=== PATIENT | female | born 1985 | race Caucasian/White ===

== ENCOUNTER 2021-07-17 08:15 | Outpatient (CLI) | payer BC, SELFPAY ==
[2021-07-17 09:16] LABS: Alanine Aminotransferase 29 U/L (14-59); Alkaline Phosphatase 99 U/L (46-116); Anion Gap 12 mmol/L (8-16); Aspartate Amino Transferase 13 U/L (15-37); Bilirubin,Total 0.4 mg/dL (0.00-1.00); Blood Urea Nitrogen 14 mg/dL (7-18); Calcium 9.4 mg/dL (8.5-10.1); Carbon Dioxide 23 mmol/L (21-32); Chloride 102 mmol/L (98-108); Cholesterol 182 mg/dL (0-200); Estimated Glomerular Filt Rate > 60; Glucose 93 mg/dL (70-99); HDL Direct 58 mg/dL (40-60); LDL Cholesterol Calculated 112 mg/dL (<130); Osmolality Calculated 284 mOsm/kg (285-295); Potassium 4.5 mmol/L (3.5-5.1); Sodium 137 mmol/L (136-145); Total Protein 7.6 g/dL (6.4-8.2); Triglycerides 60 mg/dL (0-150)
== END 2021-07-17 08:16 | disposition home or self-care (01) ==
LOC: CHSLAB 08:18
PROVIDERS: PCP Nurse Practitioner Family; Visit Provider Nurse Practitioner Family
DX: Z00.00 Encounter for general adult medical examination without abnormal findings (principal)
CPT/HCPCS: 36415; 80053; 80061

== ENCOUNTER 2023-12-28 14:42 | Outpatient (CLI) | payer BC, SELFPAY ==
--- NOTE | ~2023-12-28 | MM_ITS ---
EXAMINATION: MM screening [facility] BI w kaitlynn HISTORY: Screening TECHNIQUE: Craniocaudal and mediolateral oblique 3-D tomosynthesis images were obtained and synthetic 2-D images were generated. CAD analysis was submitted and interpreted. COMPARISON: No prior mammogram is available for comparison at this institution. BREAST PARENCHYMAL COMPOSITION: There are scattered areas of fibroglandular density. FINDINGS: There is no evidence of suspicious mass, calcification, or architectural distortion to sugg est malignancy in either breast. There has been no suspicious interval change. IMPRESSION: 1. No mammographic evidence of malignancy. 2. Recommend routine screening mammography in one year. BI-RADS Category 1: Negative Reviewed, dictated and finalized at location B.
[2023-12-28 15:09] LABS: Basophils Absolute Auto 0.07 K/mm3 (0.00-0.10); Basophils Percent Auto 0.7 % (0.0-1.0); Eosinophils Absolute Auto 0.15 K/mm3 (0.02-0.50); Eosinophils Percent Auto 1.4 % (1.0-6.0); Hemoglobin 12.7 g/dL (12.0-15.0); Immature Granulocyte Absolute 0.03 K/mm3 (0.00-0.00); Immature Granulocyte Percent A 0.3 % (0.0-0.0); Lymphocytes Absolute Auto 2.81 K/mm3 (1.10-4.50); Lymphocytes Percent Auto 26.1 % (18.0-42.0); Mean Corpuscular HGB Conc 32.6 g/dL (32-36); Mean Corpuscular Hemoglobin 27.9 pg (27.0-31.0); Mean Corpuscular Volume 85.7 fL (78.0-102.0); Mean Platelet Volume 10.1 fl (9.2-11.8); Monocytes Absolute Auto 0.57 K/mm3 (0.10-0.90); Monocytes Percent Auto 5.3 % (2.0-11.0); Neutrophils Absolute Auto 7.13 K/mm3 (1.70-7.20); Neutrophils Percent Auto 66.2 % (50.0-70.0); Platelet Count Result 306 K/mm3 (150-420); Red Blood Count 4.55 M/mm3 (4.20-5.40); Red Cell Distribution Width 13.8 % (11.6-14.4); White Blood Count 10.8 K/mm3 (4.8-10.8)
[2023-12-28 15:40] LABS: Cholesterol 213 mg/dL (0-200); HDL Direct 48 mg/dL (40-60); LDL Cholesterol Calculated 126 mg/dL (<130); Triglycerides 196 mg/dL (0-150)
== END 2023-12-28 14:43 | disposition home or self-care (01) ==
PROVIDERS: PCP Nurse Practitioner Family; Visit Provider Nurse Practitioner Family
DX: Z00.00 Encounter for general adult medical examination without abnormal findings (principal); Z13.6 Encounter for screening for cardiovascular disorders; Z12.31 Encounter for screening mammogram for malignant neoplasm of breast
CPT/HCPCS: 36415; 77063; 77067; 80061; 85025

== ENCOUNTER 2024-08-21 18:23 | Emergency (ER) | payer BC, SELFPAY ==
--- NOTE | ~2024-08-21 | XR_ITS ---
HISTORY: cough, right rib pain lower posterior COMPARISON: None TECHNIQUE: 3 views of the bilateral ribs were performed along with a PA and lateral view of the chest . FINDINGS: No acute displaced fracture is appreciated. Bone mineralization is age-appropriate. The cardiomediastinal silhouette is unremarkable. The lungs are clear. IMPRESSION: No acute displaced rib fracture is appreciated. The lungs are clear. Reviewed, dictated and finalized at location A.
[2024-08-21 18:31] VITALS: BP 173/90; PULSE 121; RESP 18; TEMP 37.2; O2SAT 100
--- OUTSIDE RECORDS SUMMARY | 2024-08-21 18:31 | XMS_ITS | Clinical Summary ---
Author Organization [facility] Address [address] [place] [address] Care Team Providers Care Racecar Driver Name Role Phone Nadeem Gray MD Primary Care Provider [phone] Medications albuterol sulfate HFA 108 (90 Base) MCG/ACT inhaler 08/16/19 25 Active azithromycin (ZITHROMAX) 250 MG tablet 08/17/19 25 Active predniSONE (DELTASONE) 20 MG tablet 08/17/19 25 Active phentermine (ADIPEX-P) 37.5 MG tabletIndicati ons:Class 3 severe obesity due to excess calories with serious comorbidity and body mass index (BMI) of 50.0 to 59.9 in adult Take 1 tablet (37.5 mg total) by mouth every morning before breakfast for 30 days. 30 tablet 08/18/19 25 025 Active venlafaxine XR (EFFEXOR-XR) 150 MG 24 hr capsuleIndicat ions:Mild episode of recurrent major depressive disorder,YAMILET (generalized anxiety disorder) Take 1 capsule (150 mg total) by mouth daily. 90 capsule 1 08/18/19 25 Active ferrous sulfate, 65 mg elemental, 325 (65 FE) MG tabletIndicati ons:Iron deficiency anemia, unspecified iron deficiency anemia type Take 1 tablet (325 mg total) by mouth daily with breakfast. 90 tablet 1 08/19/19 25 Active omeprazole (PRILOSEC) 40 MG capsuleIndicat ions:Gastroeso phageal reflux disease without esophagitis TAKE 1 CAPSULE (40 MG TOTAL) BY MOUTH DAILY. 90 capsule 08/22/19 25 Active venlafaxine XR (EFFEXOR-XR) 150 MG 24 hr capsule Take 1 capsule (150 mg total) by mouth daily. 02/12/20 25 025 Discontinued(Re order) topiramate (TOPAMAX) 25 MG tablet PLEASE SEE ATTACHED FOR DETAILED DIRECTIONS 11/02/19 24 025 Discontinued omeprazole (PRILOSEC) 20 MG capsule Take 1 capsule (20 mg total) by mouth daily. 025 Discontinued(Re order) omeprazole (PRILOSEC) 40 MG capsuleIndicat ions:Gastroeso phageal reflux disease without esophagitis Take 1 capsule (40 mg total) by mouth daily. 90 capsule 1 08/18/19 25 025 Discontinued Encounters Date Type Department Care Team Description 08/18/2024 Results Follow-Up [address] [address] Nadeem Gray MD CBC W/DIFF AUTOMATED, COMPREHENSIVE METABOLIC PANEL, TSH W/REFLEX, HEMOGLOBIN, GLYCOSYLATED 08/17/2024 1:00 PM CDT Office Visit [place] [address] [place] [address] Nadeem Gray MD Follow Up (New pt. Would like to discuss. Meds, Cpap and weightless, back pain, Hormonal acne. Pt's OB Bora Arzola. ); Anxiety; Obstructive Sleep Apnea ; Depression; Physical; Sleep Problem; GERD; Weight Problem 08/17/2024 - 08/17/2024 11:59 PM CDT Hospital Encounter [facility] [place] [address] Nadeem Gray MD Discharge Disposition: Home or Self Care (Routine Discharge) 08/17/2024 Travel from Last 3 Months Immunizations Immunization Administration Dates Next Due Tdap (Generic) 11/15/2014 Family History Medical History Relation Comments Diabetes Father Prostate Cancer Father Epilepsy Mother Relation Status Comments Father Mother Social History Tobacco Use Types Packs/Day Years Used Date Smoking Tobacco: Some Days Cigarettes 0.1 22 Started: 08/17/2002 Passive Smoke Exposure: Current Smokeless Tobacco: Never Tobacco Cessation:Ready to Q uit: Yes; Counseling Given: Yes Comments:Pt states she only smokes socially Alcohol Use Standard Drinks/Week Comments Yes 1.7 (1 standard drink = 0.6 oz p ure alcohol) socially B1300 Health Literacy Answer Date Recor ded How often do you need to hav e someone help you when you read instructions, pamphlets, or other written material from your doctor or pharmacy? Never 08/17/2024 [facility] Utilities Answer Date Recorded In the past 12 months has e [employer], gas, oil, or water company threatened to shut off services in your home? No 08/17/2024 Humiliation, Afraid, Rape, and Kick questionnair e Answer Date Recorded Within the last year, have y ou been afraid of your partner or ex-partner? No 08/17/2024 Within the last year, have y ou been humiliated or emotionally abused in other ways by your partner or ex-partner? No Within the last year, have y ou been kicked, hit, slapped, or otherwise physically hurt by your partner or ex-partner? No 08/17/2024 Within the last year, have y ou been raped or forced to have any kind of sexual activity by your partner or ex-partner? No 08/17/2024 Social Connection and Isolat ion Panel [NHANES] Answer Date Recorded In a typical week, how many times do you talk on the phone with family, friends, or neighbors? More than three times a week 08/17/2024 How often do you get togethe r with friends or relatives? More than three times a week 08/17/2024 How often do you attend chur or baptism services? More than 4 times per year 08/17/2024 Do you belong to any clubs o r organizations such as latter day groups, unions, fraternal or athletic groups, or school groups? Yes 08/17/2024 How often do you attend meet ings of the clubs or organizations you belong to? 1 to 4 times per year 08/17/2024 Are you , , di vorced, , never , or living with a partner? 08/17/2024 AUDIT-C Answer Date Recorded Q1: How often do you have a drink containing alc ohol? Monthly or less 08/17/2024 Q2: How many drinks containi ng alcohol do you have on a typical day when you are drinking? 3 or 4 08/17/2024 Q3: How often do you have si x or more drinks on one occasion? Never 08/17/2024 Overall Financial Resource Strain (CARDIA) Answe r Date Recorded How hard is it for you to pa y for the very basics like food, housing, medical care, and heating? Not very hard 08/17/2024 PHQ-2 Answer Date Recorded Patient Health Questionnaire-2 Score 0 08/17/2024 [facility] - Occupational Stress Questionnaire Answer Date Recorded Do you feel stress - tense, restless, nervous, or anxious, or unable to sleep at night because your mind is troubled all the time - these days? Only a little 08/17/2024 Exercise Vital Sign Answer Date Recorde d On average, how many days pe r week do you engage in moderate to strenuous exercise (like a brisk walk)? 1 day 08/17/2024 On average, how many minutes do you engage in exercise at this level? 20 min 08/17/2024 Hunger Vital Sign Answer Date Recorded Within the past 12 months, y ou worried that your food would run out before you got the money to buy more. Never true 08/18/19 25 Within the past 12 months, t he food you bought just didn't last and you didn't have money to get more. Never true 08/17/2024 PRAPARE - Transportation Answer Date Re corded In the past 12 months, has l ack of transportation kept you from medical appointments or from getting medications? No 07/31 In the past 12 months, has l ack of transportation kept you from meetings, work, or from getting things needed for daily living? No 08/17/2024 Housing Stability Vital Sign Answer Marc e Recorded In the last 12 months, was t here a time when you were not able to pay the mortgage or rent on time? No 08/17/2024 Number of Times Moved in the Last Year Not on fi le 08/17/2024 At any time in the past [address] [facility], were you homeless or living in a senior care (including now)? 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 Gender Identity Female 08/17/2024 12:50 PM CDT Sexual Orientation Straight 08/17/2024 12 :50 PM CDT Last Filed Vital Signs Vital Sign Reading Time Taken Comments Blood Pressure 121/78 08/17/2024 1:17 PM CDT Pulse 68 08/17/2024 1:03 PM CDT Temperature 37 C (98.6 F) 08/17/2024 1:03 PM CDT Respiratory Rate 16 08/17/2024 1:03 PM CDT Oxygen Saturation 98% 08/17/2024 1:03 PM CDT Inhaled Oxygen Concentration - - Weight 152.1 kg (335 lb 6.4 oz) 08/17/2024 1:03 PM CDT Height 162.6 cm (5' 4 ) 08/17/2024 1:03 PM CDT Body Mass Index 57.57 08/17/2024 1:03 PM CDT Plan of Treatment Upcoming Encounters Date Type Department Care Team (Late st Contact Info) Description 08/23/2024 7:30 AM CDT [facility] [address] [address] Nadeem Gray MD [address] [place] [address] 09/19/2024 11:40 AM CDT [facility] - [address] [address] Nadeem Gray MD [address] [place] [address] Health Maintenance Due Date Last Done Comments Cervical Cancer Screening Pa p Smear (Age 30 to 64) Every 3 Years 1983 Hepatitis B Vaccines (1 of 3 - 19+ 3-dose series) 2002 Pneumococcal Vaccine: Pediatrics (0 to 5 Years) and At-Risk Patients (6 to 49 Years) (1 of 2 - PCV) 2002 Cervical Cancer Screening Pa p with HPV Testing (Age 30 to 64) Every 5 Years 2013 Cervical Cancer Screening wi th HPV 2013 Mammogram Screening 2023 COVID-19 Vaccine (4 - 2023-2 5 season) 2024 03/16/2021, 08/15/2020, 07/18/2020 DTaP, Tdap and Td Vaccines ( 2 - Td or Tdap) 11/15/2024 11/15/2014 Annual Physical 08/17/2025 08/17/2024 Hepatitis C Completed 08/17/2024 PHQ-2 (Physician [place]) Completed 08/17/2024 HPV Vaccines Aged Out No longer eligi ble based on patient's age to complete this topic Meningococcal B Vaccine Aged Out No l onger eligible based on patient's age to complete this topic Meningococcal Vaccine Aged Out No radhika isabel eligible based on patient's age to complete this topic RSV Immunizations Under 20 Months Aged Out No longer eligible b ased on patient's age to complete this topic Procedures Procedure Name Priority Date/Time Associated Diagnosis Comments THYROXINE, FREE (FT4) Routine 08/17/2024 1:56 PM CDT HEMOGLOBIN, GLYCOSYLATED Routine 08/17/2024 1:56 PM CDT Annual physical exam Establishing care with new doctor, encounter for General medical exam Drug therapy TSH W/REFLEX Routine 08/17/2024 1:56 PM CDT Annual physical exam Establishing care with new doctor, encounter for General medical exam Drug therapy COMPREHENSIVE METABOLIC PANEL Routine 08/17/2024 1:56 PM CDT Annual physical exam Establishing care with new doctor, encounter for General medical exam Drug therapy CBC W/DIFF AUTOMATED Routine 08/17/2024 1:56 PM CDT Annual physical exam Establishing care with new doctor, encounter for General medical exam Drug therapy HEPATITIS C ANTIBODY Routine 08/17/2024 1:56 PM CDT Annual physical exam Establishing care with new doctor, encounter for General medical exam Drug therapy COLLECTION VENOUS BLOOD VENIPUNCTURE Routine 08/17/2024 1:44 PM CDT Annual physical exam Establishing care with new doctor, encounter for General medical exam Drug therapy from Last 3 Months Results * (ABNORMAL) TSH W/REFLEX (08/17/2024 1:56 PM CDT) Pathologist [facility] TSH 0.221(L) 0.358 - 3.740 uIU/ML 08/17/2024 8:04 PM CDT [facility] 08/17/2024 1:56 PM CDT Nadeem Gray MD LABORATORY Final Result Performing Organization Address City/[facility]/ZIP Co de Phone Number [address] [address], [place] [phone] * (ABNORMAL) HEMOGLOBIN, GLYCOSYLATED (08/17/2024 1:56 PM CDT) [facility] HGB A1C 5.5 4.5 - 6.2 % 08/17/2024 7:47 PM CDT [facility] ESTIMATED AVG GLUCOSE 111(H) 74 - 106 MG/DL 08/17/2024 7:47 PM CDT [facility] 08/17/2024 1:56 PM CDT Nadeem Gray MD LABORATORY Final Result Performing Organization Address City/[facility]/ZIP Co de Phone Number [address] [address], [place] [phone] * (ABNORMAL) COMPREHENSIVE METABOLIC PANEL (08/17/2024 1:56 PM CDT) Pathologist [facility] SODIUM S/P/B 137 136 - 145 MMOL/L 08/17/2024 8:04 PM CDT [facility] POTASSIUM S/P/B 4.5 3.5 - 5.1 MMOL/L 08/17/2024 8:04 PM CDT [facility] CHLORIDE S/P/B 101 98 - 107 MMOL/L 08/17/2024 8:04 PM [facility] CO2 26.5 21 - 32 MMOL/L 08/17/2024 8:04 PM [facility] GLUCOSE 130(H) 70 - 99 MG/DL 08/17/2024 8:04 PM [facility] BUN 10 7 - 18 MG/DL 08/17/2024 8:04 PM T [facility] CREATININE S/P/B 0.67 0.55 - 1.02 MG/DL 08/17/2024 8:04 PM [facility] CALCIUM S/P/B 9.6 8.4 - 10.5 MG/DL 08/17/2024 8:04 PM [facility] BILIRUBIN TOTAL S/P/B 0.3 0.2 - 1.0 MG/DL 08/17/2024 8:04 PM CDT [facility] ALKALINE PHOSPHATASE S/P/B 111(H) 37 - 98 U/L 08/17/2024 8:04 PM [facility] AST 13(L) 15 - 37 U/L 08/17/2024 8:04 [facility] ALT 28 14 - 59 U/L 08/17/2024 8:04 PM [facility] TOTAL PROTEIN S/P/B 7.9 6.4 - 8.2 G/DL 08/17/2024 8:04 PM [facility] ALBUMIN S/P/B 3.9 3.4 - 5.0 G/DL 08/17/2024 8:04 [facility] ANION GAP 9.5 5 - 15 MMOL/L 08/17/2024 8:04 PM T [facility] Comment:REFERENCE RANGE NOT ESTABLISHED OSMOLALITY (CALC) 285 MOSM/KG 025 8:04 PM CDT [facility] Comment:REFERENCE RANGE NOT ESTABLISHED GFR ESTIMATE >90 >90 ML/MIN/1. 73 M2 08/17/2024 8:04 PM CDT [facility] GFR NOTES GFR REFERENCE S: 08/17/2024 8:04 PM CDT [facility] Comment: THE ESTIMATED GFR IS CALCULATED USING THE 2020 CKD-EPI EQUATION. THE FOLLOWING CATEGORIES FOR GRADING RENAL FUNCTION ARE RECOMMENDED BY THE INTERNATIONAL SOCIETY OF NEPHROLOGY (KDIGO 2012 CLINICAL PRACTICE GUIDELINE). G1,NORMAL OR HIGH: >89 ml/min/1.73 m2 G2,MILDLY DECREASED: 60-89 ml/min/1.73 m2 G3A,MILDLY TO MODERATELY DECREASED: 45-59 ml/min/1.73 m2 G3B,MODERATELY TO SEVERELY DECREASED: 30-44 ml/min/1.73 m2 G4,SEVERELY DECREASED: 15-29 ml/min/1.73 m2 G5,KIDNEY FAILURE: <15 ml/min/1.73 m2 08/17/2024 1:56 PM CDT Nadeem Gray MD LABORATORY Final Result Performing Organization Address City/[facility]/ZIP Co de Phone Number [facility] [address] [place] [address], [place] [phone] * HEPATITIS C ANTIBODY (08/17/2024 1:56 PM CDT) HEPATITIS C AB NON-REACTI VE NON-REACT AIMRAH 08/18/2024 7:34 PM CDT [facility] Comment: ANTIBODIES TO HCV NOT DETECTED. DOES NOT EXCLUDE THE POSSIBILITY OF EXPOSURE TO HCV. 08/17/2024 1:56 PM CDT us Nadeem Gray MD LABORATORY Final Result [facility] [address] [place] [address], [place] [phone] [id number] * (ABNORMAL) CBC W/DIFF AUTOMATED (08/17/2024 1:56 PM CDT) [facility] WBC 11.64(H) 4.00 - 10.80 x10'3/uL 08/17/2024 7:33 PM CDT [facility] RBC 4.90 4.10 - 5.40 x10'6/uL 08/17/2024 7:33 PM CDT [facility] HGB 12.9 12.0 - 16.0 G/DL 08/17/2024 7:33 PM CDT [facility] HCT 40.5 36.0 - 47.0 % 08/17/2024 7:33 PM CDT [facility] MCV 82.7 78.0 - 100.0 FL 08/17/2024 7:33 PM CDT [facility] MCH 26.3(L) 27.0 - 31.0 PG 08/17/2024 7:33 PM CDT [facility] MCHC 31.9(L) 33.0 - 36.0 G/DL 08/17/2024 7:33 PM CDT [facility] RDW 14.8(H) 11.5 - 14.5 % 08/17/2024 7:33 PM CDT [facility] PLT 351(H) 150 - 350 x10'3/uL 08/17/2024 7:33 PM CDT [facility] MPV 10.9(H) 7.4 - 10.4 FL 08/17/2024 7:33 PM CDT [facility] DIFFERENTIAL TYPE AUTOMATED DIFFERENTIAL 08/17/2024 7:33 PM CDT [facility] NEUTROPHILS % 88.8 % 08/17/2024 7:33 PM CDT [facility] LYMPHOCYTES % 9.9 % 08/17/2024 7:33 PM CDT [facility] MONOCYTES % 0.8 % 08/17/2024 7:33 PM CDT [facility] EOSINOPHILS % 0.0 % 08/17/2024 7:33 PM CDT [facility] BASOPHILS % 0.3 % 08/17/2024 7:33 PM CDT [facility] IMMATURE GRANS % 0.2 % 08/17/2024 7:33 PM CDT [facility] ABS. NEUTROPHILS 10.35(H) 1.60 - 8.30 x10'3/uL 08/17/2024 7:33 PM CDT [facility] ABS. LYMPHOCYTES 1.15 0.80 - 4.70 x10'3/uL 08/17/2024 7:33 PM CDT [facility] ABS. MONOCYTES 0.09 0.00 - 1.50 x10'3/uL 08/17/2024 7:33 PM CDT [facility] ABS. EOSINOPHILS 0.00 0.00 - 0.40 x10'3/uL 08/17/2024 7:33 PM CDT -[facility] ABS. BASOPHILS 0.03 0.00 - 0.20 x10'3/uL 08/17/2024 7:33 PM CDT [facility] ABS. IMMATURE GRANULOCYTES 0.02 0.00 - 0.03 x10'3/uL 08/17/2024 7:33 PM CDT [facility] 08/17/2024 1:56 PM CDT us Nadeem Gray MD LABORATORY Final Result [facility] [address] [place] [address], * THYROXINE, FREE (FT4) (08/17/2024 1:56 PM CDT) Pathologist [facility] FREE T4 1.00 0.76 - 1.46 NG/DL 08/18/2024 10:46 AM CDT -[facility] 08/17/2024 1:56 PM CDT Nadeem Gray MD LABORATORY Final Result -[facility] [address] [facility] [place] [address], from Last 3 Months Insurance Care Teams Racecar Driver Relationship Specialty Start Date End Date Nadeem Gray MD [address] [facility] [address] [place] [id number] PCP - General INTERNAL MEDICINE 08/17/24
--- OUTSIDE RECORDS SUMMARY | 2024-08-21 18:32 | XMS_ITS | Encounter Summary ---
Author Organization [facility] Address [address] [place] [address] Care Team Providers Care Forgeman Helper Name Role Phone Nadeem Gray MD Primary Care Provider [phone] Encounter Details Date Type Department Care Team (Latest Contact Info) Description 08/18/2024 Results Follow-Up [facility] - [place] [address] [address] [place] [address] Nadeem Gray MD [address] [place] [address] [address] [place] [address] CBC W/DIFF AUTOMATED, COMPREHENSIVE METABOLIC PANEL, TSH W/REFLEX, HEMOGLOBIN, GLYCOSYLATED Social History Tobacco Use Types Packs/Day Years Used Date Smoking Tobacco: Some Days Cigarettes 0.1 22 Started: 08/17/2002 Passive Smoke Exposure: Current Smokeless Tobacco: Never Comments:Pt states she only smokes socially Alcohol Use Standard Drinks/Week Comments Yes 1.7 (1 standard drink = 0.6 oz p ure alcohol) socially B1300 Health Literacy Answer Date Recor ded How often do you need to hav e someone help you when you read instructions, pamphlets, or other written material from your doctor or pharmacy? Never 08/17/2024 [facility] Utilities Answer Date Recorded In the past 12 months has th e [employer], gas, oil, or water company threatened to [...] How often do you attend chur or gnosticist services? More than 4 times per year 08/17/2024 Do you belong to any clubs o r organizations such as anabaptism groups, unions, fraternal or athletic groups, or [...] Recorded Patient Health Questionnaire-2 Score 0 08/17/2024 [facility] [place] [facility] - Occupational Stress [...] any time in the past 12 m [facility], were you homeless or living in a fdc (including now)? 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 Gender Identity Female 08/17/2024 12:50 PM CDT Sexual Orientation Straight 08/17/2024 12 :50 PM CDT documented as of this encounter Plan of Treatment Upcoming Encounters Date Type Department Care Team (Late st Contact Info) Description 08/23/2024 7:30 AM CDT Laboratory Only [facility] [place] [address] [address] [place] [address] Nadeem Gray MD [address] [place] [address] [address] [place] [address] 09/19/2024 11:40 AM CDT Office Visit [facility] - [place] [address] [address] [place] [address] Nadeem Gray MD Count includes the [facility] [address] Scheduled Orders Name Type Priority Associated Diagnoses Orde r Schedule IRON SAT PANEL (IRON,IBC,%SAT) Lab Routine Iron deficiency anemia, unspecified iron deficiency anemia type Expected: 08/18/2024, Expires: 08/18/2025 [facility] Lab Routine Iron deficiency anemia, unspecified iron deficiency anemia type Expected: 08/18/2024, Expires: 08/18/2025 documented as of this encounter Visit Diagnoses Diagnosis Iron deficiency anemia, unspecified iron deficiency anemia type- Primary documented in this encounter Additional Health Concerns Assessment Noted Time PHQ-9 Depression Total Score: 1 08/18/19 25 1:23 PM CDT documented as of this encounter Care Teams Forgeman Helper Relationship Specialty Start Date End Date Nadeem Gray MD [address] [place] [address] PCP - General INTERNAL MEDICINE 08/17/24 documented as of this encounter
--- NOTE | 2024-08-21 18:43 | ECG_ITS ---
Test Date: 2024-08-21 19:28:44 Measurements Intervals [place] Rate: 96 P: 36 UT: 139 QRS: 13 QRSD: 101 T: 28 QT: 342 QTc: 433 Interpretive Statements SINUS RHYTHM MINIMAL Q WAVES- INF/HIGH LAT LEADS BASELINE ARTIFACT- III BORDERLINE ECG No previous ECG available for comparison Electronically Signed On 08-21-2024 19:54:45 CDT by Rolly Hammond D.O.
--- NOTE | 2024-08-21 18:44 | ED.GENADULT ---
HPI - General Adult General Chief complaint: Upper Respiratory Infection Stated complaint: cough Time Seen by Provider: 08/21/24 18:25 History of Present Illness HPI narrative: Ting is a 39F with a PMH of LUIS, GERD, that presented to the ED with a cough and near syncope. She has had a cough for 4. It persists despite steroids, inhaler and a round of abx. She has less congestion and sputum now but coughs so hard she has developed sevre rib pain and has nearly passed out from the cough. No exertional CP, vomiting, fevers, night sweats but she is having some heartburn. Related Data Home Medications ?Medication ?Instructions ?Recorded ?Confirmed ?Last Taken ?Type aspirin 81 mg tablet,delayed 81 mg PO DAILY 12/07/23 08/09/24 Unknown History release cholecalciferol (vitamin D3) 25 25 mcg PO DAILY 12/07/23 08/09/24 Unknown History mcg (1,000 unit) capsule mecobalamin (vitamin B12) 1,000 1,000 mcg PO DAILY 12/07/23 08/09/24 Unknown History mcg chewable tablet xyjumqzdbgys-Ex-wyro-minerals tablet PO 12/07/23 08/09/24 Unknown History omega-3 360 yb-vrw-mod-fish oil 1 cap PO DAILY 12/07/23 08/09/24 Unknown History 1,200 mg capsule,delayed release (Fish Oil) Allergies Allergy/AdvReac Type Severity Reaction Status Date / Time No Known Allergies Allergy Verified 08/21/24 18:29 COUNT INCLUDES THE [facility] Surgical History Surgical History History of hysterectomy Family History Family History Father Diabetes mellitus Hypertension Cerebrovascular accident Mother No problems noted. Social History Social History Smoking status: Former smoker Tobacco type: cigarettes Smoking end date: 06/30/21 Substance use: never Substance use type: does not use Living arrangements: with family Occupation/Education: occupation Additional occupation/education comments: [employer] Course Course Emergency Course: EKG showed sinus tachycardia with a rate of 96, normal axis, no ST elevation/depression HISTORY: cough, right rib pain lower posterior COMPARISON: None TECHNIQUE: 3 views of the bilateral ribs were performed along with a PA and lateral view of the chest. FINDINGS: No acute displaced fracture is appreciated. Bone mineralization is age-appropriate. The cardiomediastinal silhouette is unremarkable. The lungs are clear. IMPRESSION: No acute displaced rib fracture is appreciated. The lungs are clear. Labs showed leukocytosis, likely reactive from her recent steroid use. Given normal workup I suspect cough could be from GERD vs vocal cord dysfunction vs other as her lungs/CXR are clear. I suspect her near syncope is vasovagal in origin as it only happens when coughs really hard. Vital Signs Vital signs: Vital Signs Oxygen Delivery Room Air 08/21/24 18:23 Temperature 99.0 F 08/21/24 18:31 Pulse Rate 121 H 08/21/24 18:31 Respiratory Rate 18 08/21/24 18:31 Blood Pressure 173/90 H 08/21/24 18:31 Pulse Oximetry 100 08/21/24 18:31 Oxygen Delivery Room Air 08/21/24 18:31 Medical Decision Making Vital Signs Vital Signs: Vital Signs Oxygen Delivery Room Air 08/21/24 18:23 Temperature 99.0 F 08/21/24 18:31 Pulse Rate 121 H 08/21/24 18:31 Respiratory Rate 18 08/21/24 18:31 Blood Pressure 173/90 H 08/21/24 18:31 Pulse Oximetry 100 08/21/24 18:31 Oxygen Delivery Room Air 08/21/24 18:31 Lab Data 08/21/24 19:03 08/21/24 19:03 Labs: Lab Results 08/21/24 Range/Units 19:03 WBC 16.5 H (4.8-10.8) K/mm3 RBC 5.01 (4.20-5.40) M/mm3 Hgb 13.3 (12.0-15.0) g/dL Hct 41.4 (35.0-49.0) % MCV 82.6 (78.0-102.0) fL MCH 26.5 L (27.0-31.0) pg MCHC 32.1 (32-36) g/dL RDW 14.8 H (11.6-14.4) % Plt Count 385 (150-420) K/mm3 MPV 10.3 (9.2-11.8) fl Immature Gran % (Auto) 0.5 H (0.0-0.0) % Neut % (Auto) 76.4 H (50.0-70.0) % Lymph % (Auto) 19.2 (18.0-42.0) % Vermilion % (Auto) 3.5 (2.0-11.0) % Eos % (Auto) 0.1 L (1.0-6.0) % Baso % (Auto) 0.3 (0.0-1.0) % Lymph # (Auto) 3.17 (1.10-4.50) K/mm3 Vermilion # (Auto) 0.57 (0.10-0.90) K/mm3 Eos # (Auto) 0.01 L (0.02-0.50) K/mm3 Baso # (Auto) 0.05 (0.00-0.10) K/mm3 Abs Immat Gran (auto) 0.08 H (0.00-0.00) K/mm3 Absolute Neuts (auto) 12.64 H (1.70-7.20) K/mm3 Absolute Nucleated RBC 0.00 (0.00-0.00) K/mm3 Nucleated RBC % 0.0 (0-0.0) % Sodium 135 L (136-145) mmol/L Potassium 4.2 (3.5-5.1) mmol/L Chloride 96 L (98-108) mmol/L Carbon Dioxide 28 (21-32) mmol/L Anion Gap 11 (4-12) mmol/L BUN 21 H (7-18) mg/dL Creatinine 1.04 H (0.55-1.02) mg/dL Estim Creat Clear Calc 97 ml/min Estimated GFR 58 L (59 - ) Glucose 120 H (70-99) mg/dL Calculated Osmolality 284 L (285-295) mOsm/kg Calcium 9.7 (8.5-10.1) mg/dL Total Bilirubin 0.4 (0.00-1.00) mg/dL AST 10 L (15-37) U/L ALT 24 (14-59) U/L Alkaline Phosphatase 112 (46-116) U/L Troponin I < 4.0 (0.00-60.4) ng/L Total Protein 8.5 H (6.4-8.2) g/dL Albumin 3.9 (3.4-5.0) g/dL Discharge Plan Discharge Clinical Impression: Chronic cough, Chronic GERD, Near syncope Patient Disposition: Home Condition: Stable Instructions: Antibiotic Form Patient Language: Maltese Prescriptions: New famotidine 40 mg tablet 40 mg PO DAILY Qty: 30 0RF No Action aspirin 81 mg tablet,delayed release (DR/EC) 81 mg PO DAILY prjancxfdtkq-Js-bzvq-minerals Tablet PO mecobalamin (vitamin B12) 1,000 mcg tablet,chewable 1,000 mcg PO DAILY cholecalciferol (vitamin D3) 25 mcg (1,000 unit) capsule 25 mcg PO DAILY omega 3-ufg-hoj-fish oil [Fish Oil] 360-1,200 mg capsule,delayed release(DR/EC) 1 cap PO DAILY venlafaxine 150 mg capsule,extended release 24hr 150 mg PO DAILY Qty: 90 3RF Zepbound 2.5 mg/0.5 mL pen injector 2.5 mg subcut WEEKLY Qty: 2 0RF Rx Instructions: for 4 weeks omeprazole 20 mg capsule,delayed release(DR/EC) See Rx Instructions .ROUTE .COMPLEX Qty: 90 0RF Dose Instruction: TAKE ONE CAPSULE BY MOUTH DAILY Rx Instructions: TAKE ONE CAPSULE BY MOUTH DAILY prednisone 20 mg tablet 40 mg PO DAILY Qty: 10 0RF azithromycin [Zithromax Z-Willam] 250 mg tablet See Rx Instructions PO .COMPLEX Qty: 6 0RF Rx Instructions: take 500 mg today (day 1), then 250 mg for 4 days (days 2-5) PO albuterol-budesonide 90-80 mcg/actuation HFA aerosol inhaler 2 inh inhalation ONCE Qty: 10.7 0RF Rx Instructions: as a single dose; may repeat up to 6 doses per day (12 inhalations) Follow-up/Referrals: Marina,MD Nadeem [Primary Care Provider] -
[2024-08-21 19:06] LABS: Basophils Absolute Auto 0.05 K/mm3 (0.00-0.10); Basophils Percent Auto 0.3 % (0.0-1.0); Eosinophils Absolute Auto 0.01 K/mm3 (0.02-0.50); Eosinophils Percent Auto 0.1 % (1.0-6.0); Hematocrit 41.4 % (35.0-49.0); Hemoglobin 13.3 g/dL (12.0-15.0); Immature Granulocyte Absolute 0.08 K/mm3 (0.00-0.00); Immature Granulocyte Percent A 0.5 % (0.0-0.0); Lymphocytes Absolute Auto 3.17 K/mm3 (1.10-4.50); Lymphocytes Percent Auto 19.2 % (18.0-42.0); Mean Corpuscular HGB Conc 32.1 g/dL (32-36); Mean Corpuscular Hemoglobin 26.5 pg (27.0-31.0); Mean Corpuscular Volume 82.6 fL (78.0-102.0); Mean Platelet Volume 10.3 fl (9.2-11.8); Monocytes Absolute Auto 0.57 K/mm3 (0.10-0.90); Monocytes Percent Auto 3.5 % (2.0-11.0); Neutrophils Absolute Auto 12.64 K/mm3 (1.70-7.20); Neutrophils Percent Auto 76.4 % (50.0-70.0); Platelet Count Result 385 K/mm3 (150-420); Red Blood Count 5.01 M/mm3 (4.20-5.40); Red Cell Distribution Width 14.8 % (11.6-14.4); White Blood Count 16.5 K/mm3 (4.8-10.8)
--- OUTSIDE RECORDS SUMMARY | 2024-08-21 19:12 | XMS_ITS | Clinical Summary ---
Author Organization [facility] Address [address] [place] [address] Care Team Providers Care Bryologist Name Role Phone Nadeem Gray MD Primary Care Provider [phone] Medications albuterol sulfate HFA 108 (90 Base) [...] Department Care Team Description 08/18/2024 Results Follow-Up [address] [address] Nadeem Gray MD CBC W/DIFF AUTOMATED, COMPREHENSIVE METABOLIC PANEL, TSH W/REFLEX, HEMOGLOBIN, GLYCOSYLATED 08/17/2024 1:00 PM CDT Office Visit [place] [address] [place] [address] Nadeem Gray MD Follow Up (New pt. Would like to discuss. Meds, Cpap and weightless, back pain, Hormonal acne. Pt's OB Bora Arzola. ); Anxiety; Obstructive Sleep Apnea ; Depression; Physical; Sleep Problem; GERD; Weight Problem 08/17/2024 - 08/17/2024 11:59 PM CDT Hospital Encounter [facility] [place] [address] Nadeem Gray MD Discharge Disposition: Home or [...] from your doctor or pharmacy? Never 08/17/2024 [facility] Utilities Answer Date Recorded In the past 12 months has e [employer], gas, oil, or water company threatened to [...] How often do you attend chur or roman catholic services? More than 4 times per year 08/17/2024 Do you belong to any clubs o r organizations such as gnosticist groups, unions, fraternal or athletic groups, or [...] Recorded Patient Health Questionnaire-2 Score 0 08/17/2024 [facility] of Occupat ional Health - Occupational Stress [...] any time in the past 12 m [facility], were you homeless or living in a long term (including now)? 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 Gender Identity Female 08/17/2024 12:50 PM CDT [...] Description 08/23/2024 7:30 AM CDT [facility] [address] [address] Nadeem Gray MD [address] [place] [address] 09/19/2024 11:40 AM CDT [facility] [address] [address] Nadeem Gray MD [address] [place] [address] Health Maintenance Due Date Last Done Comments [...] 08/17/2024 Hepatitis C Completed 08/17/2024 PHQ-2 (Physician [place]) Completed 08/17/2024 HPV Vaccines Aged Out No [...] TSH W/REFLEX (08/17/2024 1:56 PM CDT) Pathologist [facility] TSH 0.221(L) 0.358 - 3.740 uIU/ML 08/17/2024 8:04 PM CDT [facility] 08/17/2024 1:56 PM CDT Nadeem Gray MD LABORATORY Final Result Performing Organization Address City/[facility]/ZIP Co de Phone Number [address] [address], [place] [phone] * (ABNORMAL) HEMOGLOBIN, GLYCOSYLATED (08/17/2024 1:56 PM CDT) [facility] HGB A1C 5.5 4.5 - 6.2 % 08/17/2024 7:47 PM CDT [facility] ESTIMATED AVG GLUCOSE 111(H) 74 - 106 MG/DL 08/17/2024 7:47 PM CDT [facility] 08/17/2024 1:56 PM CDT Nadeem Gray MD LABORATORY Final Result Performing Organization Address City/[facility]/ZIP Co de Phone Number [address] [address], [place] [phone] * (ABNORMAL) COMPREHENSIVE METABOLIC PANEL (08/17/2024 1:56 PM CDT) Pathologist [facility] SODIUM S/P/B 137 136 - 145 MMOL/L 08/17/2024 8:04 PM CDT [facility] POTASSIUM S/P/B 4.5 3.5 - 5.1 MMOL/L 08/17/2024 8:04 PM CDT [facility] CHLORIDE S/P/B 101 98 - 107 MMOL/L 08/17/2024 8:04 PM [facility] CO2 26.5 21 - 32 MMOL/L 08/17/2024 8:04 PM [facility] GLUCOSE 130(H) 70 - 99 MG/DL 08/17/2024 8:04 PM [facility] BUN 10 7 - 18 MG/DL 08/17/2024 8:04 PM T [facility] CREATININE S/P/B 0.67 0.55 - 1.02 MG/DL 08/17/2024 8:04 PM [facility] CALCIUM S/P/B 9.6 8.4 - 10.5 MG/DL 08/17/2024 8:04 PM [facility] BILIRUBIN TOTAL S/P/B 0.3 0.2 - 1.0 MG/DL 08/17/2024 8:04 PM CDT [facility] ALKALINE PHOSPHATASE S/P/B 111(H) 37 - 98 U/L 08/17/2024 8:04 PM [facility] AST 13(L) 15 - 37 U/L 08/17/2024 8:04 [facility] ALT 28 14 - 59 U/L 08/17/2024 8:04 PM [facility] TOTAL PROTEIN S/P/B 7.9 6.4 - 8.2 G/DL 08/17/2024 8:04 PM [facility] ALBUMIN S/P/B 3.9 3.4 - 5.0 G/DL 08/17/2024 8:04 [facility] ANION GAP 9.5 5 - 15 MMOL/L 08/17/2024 8:04 PM T [facility] Comment:REFERENCE RANGE NOT ESTABLISHED OSMOLALITY (CALC) 285 MOSM/KG 025 8:04 PM CDT [facility] Comment:REFERENCE RANGE NOT ESTABLISHED GFR ESTIMATE >90 >90 ML/MIN/1. 73 M2 08/17/2024 8:04 PM CDT [facility] GFR NOTES GFR REFERENCE S: 08/17/2024 8:04 PM CDT [facility] Comment: THE ESTIMATED GFR IS CALCULATED USING [...] MD LABORATORY Final Result Performing Organization Address City/[facility]/ZIP Co de Phone Number [facility] [address] [place] [address], [place] [phone] * HEPATITIS C ANTIBODY (08/17/2024 1:56 PM CDT) HEPATITIS C AB NON-REACTI VE NON-REACT AMIRAH 08/18/2024 7:34 PM CDT [facility] Comment: ANTIBODIES TO HCV NOT DETECTED. DOES NOT EXCLUDE THE POSSIBILITY OF EXPOSURE TO HCV. 08/17/2024 1:56 PM CDT us Nadeem Gray MD LABORATORY Final Result [facility] [address] [place] [address], [place] [phone] * (ABNORMAL) CBC W/DIFF AUTOMATED (08/17/2024 1:56 PM CDT) [facility] WBC 11.64(H) 4.00 - 10.80 x10'3/uL 08/17/2024 7:33 PM CDT [facility] RBC 4.90 4.10 - 5.40 x10'6/uL 08/17/2024 7:33 PM CDT [facility] HGB 12.9 12.0 - 16.0 G/DL 08/17/2024 7:33 PM CDT [facility] HCT 40.5 36.0 - 47.0 % 08/17/2024 7:33 PM CDT [facility] MCV 82.7 78.0 - 100.0 FL 08/17/2024 7:33 PM CDT [facility] MCH 26.3(L) 27.0 - 31.0 PG 08/17/2024 7:33 PM CDT [facility] MCHC 31.9(L) 33.0 - 36.0 G/DL 08/17/2024 7:33 PM CDT [facility] RDW 14.8(H) 11.5 - 14.5 % 08/17/2024 7:33 PM CDT [facility] PLT 351(H) 150 - 350 x10'3/uL 08/17/2024 7:33 PM CDT [facility] MPV 10.9(H) 7.4 - 10.4 FL 08/17/2024 7:33 PM CDT [facility] DIFFERENTIAL TYPE AUTOMATED DIFFERENTIAL 08/17/2024 7:33 PM CDT [facility] NEUTROPHILS % 88.8 % 08/17/2024 7:33 PM CDT [facility] LYMPHOCYTES % 9.9 % 08/17/2024 7:33 PM CDT [facility] MONOCYTES % 0.8 % 08/17/2024 7:33 PM CDT [facility] EOSINOPHILS % 0.0 % 08/17/2024 7:33 PM CDT [facility] BASOPHILS % 0.3 % 08/17/2024 7:33 PM CDT [facility] IMMATURE GRANS % 0.2 % 08/17/2024 7:33 PM CDT [facility] ABS. NEUTROPHILS 10.35(H) 1.60 - 8.30 x10'3/uL 08/17/2024 7:33 PM CDT [facility] ABS. LYMPHOCYTES 1.15 0.80 - 4.70 x10'3/uL 08/17/2024 7:33 PM CDT [facility] ABS. MONOCYTES 0.09 0.00 - 1.50 x10'3/uL 08/17/2024 7:33 PM CDT [facility] ABS. EOSINOPHILS 0.00 0.00 - 0.40 x10'3/uL 08/17/2024 7:33 PM CDT [facility] ABS. BASOPHILS 0.03 0.00 - 0.20 x10'3/uL 08/17/2024 7:33 PM CDT [facility] ABS. IMMATURE GRANULOCYTES 0.02 0.00 - 0.03 x10'3/uL 08/17/2024 7:33 PM CDT [facility] 08/17/2024 1:56 PM CDT us Nadeem Gray MD LABORATORY Final Result [facility] [address] [place] [address], * THYROXINE, FREE (FT4) (08/17/2024 1:56 PM CDT) Pathologist [facility] FREE T4 1.00 0.76 - 1.46 NG/DL 08/18/2024 10:46 AM CDT [facility] 08/17/2024 1:56 PM CDT Nadeem Gray MD LABORATORY Final Result -[facility] [address] [facility] [place] [address], from Last 3 Months Insurance Care Teams Bryologist Relationship Specialty Start Date End Date Nadeem Gray MD [address] [facility] [address] [place] [address] PCP - General INTERNAL MEDICINE 08/17/24
--- OUTSIDE RECORDS SUMMARY | 2024-08-21 19:12 | XMS_ITS | Encounter Summary ---
Author Organization [facility] - [facility] Address [address] [place] [address] Care Team Providers Care Painter Bottom Name Role Phone Nadeem Gray MD Primary Care Provider [phone] Encounter Details Date Type Department Care Team (Latest Contact Info) Description 08/18/2024 Results Follow-Up [facility] Medical Group Multispecialty Care - [place] [address] [address] [place] [address] Nadeem Gray MD [address] [place] [address] [address] [place] [address] CBC W/DIFF AUTOMATED, COMPREHENSIVE METABOLIC [...] from your doctor or pharmacy? Never 08/17/2024 [facility] Utilities Answer Date Recorded In the past 12 months has th e [employer], gas, oil, or water company threatened to [...] How often do you attend chur or buddhism services? More than 4 times per year 08/17/2024 Do you belong to any clubs o r organizations such as judaism groups, unions, fraternal or athletic groups, or [...] Recorded Patient Health Questionnaire-2 Score 0 08/17/2024 [facility] of Occupat ional Health - Occupational Stress [...] any time in the past 12 m [facility], were you homeless or living in a correction (including now)? 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 Gender Identity Female 08/17/2024 12:50 PM CDT Sexual Orientation Straight 08/17/2024 12 :50 PM CDT documented as of this encounter Plan of Treatment Upcoming Encounters Date Type Department Care Team (Late st Contact Info) Description 08/23/2024 7:30 AM CDT Laboratory Only [facility] Medical [facility] Care - [place] [address] [address] [place] [address] Nadeem Gray MD [address] [place] [address] [address] [place] [address] 09/19/2024 11:40 AM CDT Office Visit [facility] Medical [facility] Care - [place] [address] [address] [place] [address] Nadeem Gray MD [facility] [address] [address] Scheduled Orders Name Type Priority Associated Diagnoses [...] documented as of this encounter Care Teams Painter Bottom Relationship Specialty Start Date End Date Nadeem Gray MD [address] [place] [id number] PCP - General INTERNAL MEDICINE 08/17/24 documented as of this encounter
[2024-08-21 19:29] LABS: Alanine Aminotransferase 24 U/L (14-59); Albumin Level 3.9 g/dL (3.4-5.0); Alkaline Phosphatase 112 U/L (46-116); Anion Gap 11 mmol/L (4-12); Aspartate Amino Transferase 10 U/L (15-37); Bilirubin,Total 0.4 mg/dL (0.00-1.00); Blood Urea Nitrogen 21 mg/dL (7-18); Calcium 9.7 mg/dL (8.5-10.1); Carbon Dioxide 28 mmol/L (21-32); Chloride 96 mmol/L (98-108); Estimated CRCL calculation 97 ml/min; Estimated Glomerular Filt Rate 58; Glucose 120 mg/dL (70-99); Osmolality Calculated 284 mOsm/kg (285-295); Potassium 4.2 mmol/L (3.5-5.1); Sodium 135 mmol/L (136-145); Total Protein 8.5 g/dL (6.4-8.2)
[2024-08-21 19:30] LABS: Troponin I < 4.0 ng/L (0.00-60.4)
--- NOTE | 2024-08-21 19:37 | PC.NURSE ---
Went in to do Patient's EKG and patient started coughing real hard and face turned red. Patient went limp and stared off for 5-6 seconds. Patient then came around and was confused for second on what just happened.
== END 2024-08-21 19:52 | disposition home or self-care (01) ==
PROVIDERS: Emergency Provider Family Medicine; PCP Internal Medicine
DX: R05.3 Chronic cough (principal); K21.9 Gastro-esophageal reflux disease without esophagitis; R55 Syncope and collapse; Z87.891 Personal history of nicotine dependence
CPT/HCPCS: 36415; 71046; 71110; 80053; 84484; 85025; 93005; 99284

== ENCOUNTER 2024-09-17 06:39 | Outpatient (CLI) | payer BC, SELFPAY ==
--- OUTSIDE RECORDS SUMMARY | 2024-09-17 06:42 | XMS_ITS | Encounter Summary ---
Author Organization [facility] Address [facility] [place] [address] Care Team Providers Care Metal Tank Builder Name Role Phone Nadeem Gray MD Primary Care Provider Encounter Details Date Type Department Care Team (Latest Contact Info) Description 09/10/2024 Results Follow-Up [facility] Medical Group Multispecialty Care - [place] [address] [address] [place] [address] Ndaeem Gray MD [address] [place] [address] [address] [place] [address] FERRITIN, IRON SAT PANEL (IRON,IBC,%SAT) Social History Tobacco Use Types Packs/Day Years Used Date Smoking Tobacco: Some Days Cigarettes 0.1 22.1 Started: 08/17/2002 Passive Smoke Exposure: Current Smokeless [...] from your doctor or pharmacy? Never 08/17/2024 [facility] Utilities Answer Date Recorded In the past 12 months has th e [employer], gas, oil, or water company threatened to [...] any clubs o r organizations such as mormon groups, unions, fraternal or athletic groups, or [...] Recorded Patient Health Questionnaire-2 Score 0 08/17/2024 [facility] of Occupat ional Health - Occupational Stress [...] time in the past 12 m [facility], were you homeless or living in a [place] health care facility (including now)? 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 Gender Identity Female 08/17/2024 12:50 PM CDT Sexual Orientation Straight 08/17/2024 12 :50 PM CDT documented as of this encounter Plan of Treatment Upcoming Encounters Date Type Department Care Team (Late st Contact Info) Description 09/19/2024 11:40 AM CDT Office Visit [facility] Medical Group Multispecialty Care - [place] [address] [address] [place] [address] Nadeem Gray MD [address] [place] [address] [address] [place] [address] 02/15/2025 10:20 AM CDT Office Visit [facility] - [facility] [address] [place] [address] Simone Sage DO [address] [place] [address] documented as of this encounter Visit Diagnoses Not on filedocumented in this encounter Additional Health Concerns Assessment Noted Time PHQ-9 Depression Total Score: 1 08/18/19 25 1:23 PM CDT documented as of this encounter Care Teams Metal Tank Builder Relationship Specialty Start Date End Date Nadeem Gray MD [address] [address] PCP - General INTERNAL MEDICINE 08/17/24 documented as of this encounter
--- OUTSIDE RECORDS SUMMARY | 2024-09-17 06:42 | XMS_ITS | Clinical Summary ---
Author Organization [facility] Address [address] [place] [address] Care Team Providers Care Dinkey Skinner Name Role Phone Nadeem Gray MD Primary Care Provider [phone] Medications venlafaxine XR (EFFEXOR-XR) 150 MG 24 hr capsuleIndicati ons:Mild episode of recurrent major depressive disorder,YAMILET (generalized anxiety disorder) Take 1 capsule (150 mg total) by mouth daily. 90 capsule 1 08/18/19 25 Active ferrous sulfate, 65 mg elemental, 325 (65 FE) MG tabletIndicatio ns:Iron deficiency anemia, unspecified iron deficiency anemia type Take 1 tablet (325 mg total) by mouth daily with breakfast. 90 tablet 1 08/19/19 25 Active omeprazole (PRILOSEC) 40 MG capsuleIndicati ons:Gastroesoph ageal reflux disease without esophagitis TAKE 1 CAPSULE (40 MG TOTAL) BY MOUTH DAILY. 90 capsule 08/22/19 25 Active methylPREDNISol one, CLAUDETTE, (MEDROL DOSEPAK) 4 MG tabletIndicatio ns:Persistent cough 6 TABLETS ON DAY ONE, 5 TABLETS DAY TWO, 4 TABLETS DAY THREE, 3 TABLETS DAY FOUR, 2 TABLETS DAY FIVE, AND 1 TABLET DAY SIX 1 each 08/29/19 25 Active budesonide-glyc opyrrolate-form oterol (BREZTRI AEROSPHERE) 160-9-4.8 MCG/ACT inhalerIndicati ons:Persistent cough Inhale 2 puffs into the lungs 2 (two) times daily. 10.7 g 08/29/19 25 Active codeine 30 MG tabletIndicatio ns:Chronic Pain Take 1 tablet (30 mg total) by mouth every 6 (six) hours as needed for Pain. Indications: Chronic Pain 15 tablet 08/29/19 25 Active cyclobenzaprine (FLEXERIL) 5 MG tabletIndicatio ns:Acute midline thoracic back pain Take 1 tablet (5 mg total) by mouth nightly as needed for Muscle Spasms. 10 tablet 08/29/19 25 Active albuterol sulfate HFA 108 (90 Base) MCG/ACT inhaler 08/16/19 25 025 Discontinued(Ot her- Please enter comment in Notes field) azithromycin (ZITHROMAX) 250 MG tablet 08/17/19 25 025 Discontinued(Ot her- Please enter comment in Notes field) predniSONE (DELTASONE) 20 MG tablet 08/17/19 25 025 Discontinued(Ot her- Please enter comment in Notes field) phentermine (ADIPEX-P) 37.5 MG tabletIndicatio ns:Class 3 severe obesity due to excess calories with serious comorbidity and body mass index (BMI) of 50.0 to 59.9 in adult Take 1 tablet (37.5 mg total) by mouth every morning before breakfast for 30 days. 30 tablet 08/18/19 25 025 Discontinued(Ot her- Please enter comment in Notes field) omeprazole (PRILOSEC) 40 MG capsuleIndicati ons:Gastroesoph ageal reflux disease without esophagitis Take 1 capsule (40 mg total) by mouth daily. 90 capsule 1 08/18/19 25 025 Discontinued azithromycin (ZITHROMAX Z-CLAUDETTE) 250 MG tabletIndicatio ns:Persistent cough Take 2 tablets by mouth on day one then 1 daily for four days. 6 tablet 08/29/19 25 025 Active Problems No known active problems Encounters Date Type Department Care Team Description 09/13/2024 1:15 PM CDT Telephone [facility] [address] [place] [address] Nadeem Gray MD Holter Monitor 09/10/2024 8:30 AM CDT Laboratory Only [facility] Multispecialty Care - [address] [place] [address] Nadeem Gray MD 09/10/2024 [facility] [place] - [place] [id number] [facility] [address] [place] [address] Nadeem Gray MD FERRITIN, IRON SAT PANEL (IRON,IBC,%SAT) 09/10/2024 Travel 09/07/2024 MyChart Message Enc [facility] [place] [address] [address] [facility] [address] [place] [address] Nadeem Gray MD EEG Appointment 08/28/2024 8:20 AM CDT Office Visit [place] [address] [place] [address] [address] [place] [address] Nadeem Gray MD Cough (Ongoing a month ); Syncope (Pt states she has been passing out 15 times in the last month. Pt passed out 4 times ); Back Pain; ER F/U (Pt went to er from back pain or rib from coughing spells. Tueday went to [facility] ER) 08/28/2024 Results Follow-Up [facility] - [place] [address] [address] [place] [address] Nadeem Gray MD XR THOR SPINE 3V 08/28/2024 Telephone [facility] - [place] [address] [address] [address] [address] [place] [address] Nadeem Gray MD Orders 08/28/2024 Travel 08/21/2024 Scan [employer] [facility] INFO SRVCS Scanned, Doc [facility] 08/18/2024 Results [facility] [place] [address] [address] [facility] [address] [place] [address] Nadeem Gray MD CBC W/DIFF AUTOMATED, COMPREHENSIVE METABOLIC PANEL, TSH W/REFLEX, HEMOGLOBIN, GLYCOSYLATED 08/17/2024 1:00 PM CDT [facility] [place] [address] [address] [facility] [address] [place] [address] Nadeem Gray MD Follow Up (New pt. Would like to discuss. Meds, Cpap and weightless, back pain, Hormonal acne. Pt's OB [facility]. ); Anxiety; Obstructive Sleep Apnea ; Depression; Physical; Sleep Problem; GERD; Weight Problem 08/17/2024 - 08/17/2024 11:59 PM CDT Hospital Encounter [facility] [address] [place] [address] Nadeem Gray MD Discharge Disposition: Home or [...] from your doctor or pharmacy? Never 08/17/[address] [facility] Utilities Answer Date Recorded In the past 12 months has [facility] [employer], gas, oil, or water [employer] threatened to shut off services in your [...] How often do you attend chur or yarsani services? More than 4 times per year 08/17/2024 Do you belong to any clubs o r organizations such as zoroastrian groups, unions, fraternal or athletic groups, or [...] Recorded Patient Health Questionnaire-2 Score 0 08/17/2024 [facility] of Occupat ional Health - Occupational Stress [...] any time in the past 12 m [facility], were you homeless or living in a halfway (including now)? 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 Gender Identity Female 08/17/2024 12:50 PM CDT Sexual Orientation Straight 08/17/2024 12 :50 PM CDT Last Filed Vital Signs Vital Sign Reading Time Taken Comments Blood Pressure 119/77 08/28/2024 8:32 AM CDT Pulse 109 08/28/2024 8:32 AM CDT Temperature 37 C (98.6 F) 08/28/2024 8:32 AM CDT Respiratory Rate 16 08/28/2024 8:32 AM CDT Oxygen Saturation 98% 08/28/2024 8:32 AM CDT Inhaled Oxygen Concentration - - Weight 157.9 kg (348 lb) 08/28/2024 8:32 AM CDT Height 162.6 cm (5' 4 ) 08/28/2024 8:32 AM CDT Body Mass Index 59.73 08/28/2024 8:32 AM CDT Plan of Treatment Upcoming Encounters Date Type Department Care Team (Late st Contact Info) Description 09/19/2024 11:40 AM CDT Office Visit [facility] Medical Group Multispecialty Care - [address] [place] [id number] Nadeem Gray MD [address] [facility] [address] [place] [address] 02/15/2025 10:20 AM CDT Office Visit [facility] Multispecialty Care - [facility] [address] [place] [address] Simone Sage DO [address] [place] [address] Health Maintenance Due Date Last Done Comments [...] 08/17/2024 Hepatitis C Completed 08/17/2024 PHQ-2 (Physician [place]) Completed 08/17/2024 HPV Vaccines Aged Out No [...] Procedure Name Priority Date/Time Associated Diagnosis Comments COLLECTION VENOUS BLOOD VENIPUNCTURE Routine 09/10/2024 8:58 AM CDT Iron deficiency anemia, unspecified iron deficiency anemia type IRON SAT PANEL (IRON,IBC,%SAT) Routine 09/10/2024 8:39 AM CDT Iron deficiency anemia, unspecified iron deficiency anemia type FERRITIN Routine 09/10/2024 8:39 AM CDT Iron deficiency anemia, unspecified iron deficiency anemia type XR THOR SPINE 3V Routine 08/28/2024 10:0 1 AM CDT Acute midline thoracic back pain THYROXINE, FREE (FT4) Routine 08/17/2024 1:56 PM [...] therapy from Last 3 Months Results * IRON SAT PANEL (IRON,IBC,%SAT) (09/10/2024 8:39 AM CDT) IRON 52 50 - 170 MCG/DL 09/10/2024 4:14 PM CDT [facility] IRON BINDING CAPACITY 326 250 - 450 MCG/DL 09/10/2024 4:14 PM CDT [facility] IRON SATURATION 16 % 4:14 PM CDT [facility] Comment:REFERENCE RANGE NOT ESTABLISHED 09/10/2024 8:39 AM CDT Nadeem Gray MD LABORATORY Final Result Performing Organization Address [facility] Co de Phone Number [facility] [address] [place] [address], [place] [phone] * FERRITIN (09/10/2024 8:39 AM CDT) [facility] FERRITIN 105.0 8 - 252 NG/ML 09/10/2024 4:14 PM CDT [facility] 09/10/2024 8:39 AM CDT Nadeem Gray MD LABORATORY Final Result Performing Organization Address [facility] Co de Phone Number [address] [address], [place] [phone] * XR THOR SPINE 3V (08/28/2024 10:01 AM CDT) Anatomical Region Laterality Modality Spine Radiographic Leelee ging 08/28/2024 11:3 2 AM CDT Impressions 08/28/2024 11:32 AM CDT IMPRESSION: No acute findings Ordered By: NADEEM GRAY Interpreted By: Sancho Mas MD, 08/28/2024 11:32 AM Narrative 08/28/2024 11:32 AM CDT [facility] Medical [facility] [place] [address] 3 VIEWS OF THE THORACIC SPINE Clinical History: Pain Comparison: None 3 views of the thoracic spine demonstrate no evidence of fracture or malalignment. The vertebral body heights and intervertebral disc heights are symmetric and within normal limits throughout. The spinous processes appear normal. The visualized posterior ribs are intact. Procedure Note Sancho Mas MD - 08/28/2024 [facility] [place] [address] 3 VIEWS OF THE THORACIC SPINE Clinical History: Pain Comparison: None 3 views of the thoracic spine demonstrate no evidence of fracture ormalalignment. The vertebral body heights and intervertebral disc heightsare symmetric and within normal limits throughout. The spinous processesappear normal. The visualized posterior ribs are intact. IMPRESSION: No acute findings Ordered By: NADEEM GRAY Interpreted By: Sancho Mas MD, 08/28/2024 11:32 AM Nadeem Gray MD GENERAL IMAGING Final Result * (ABNORMAL) TSH W/REFLEX (08/17/2024 1:56 PM CDT) Pathologist [facility] TSH 0.221(L) 0.358 - 3.740 uIU/ML 08/17/2024 8:04 PM CDT [facility] 08/17/2024 1:56 PM CDT Nadeem Gray MD LABORATORY Final Result [facility] [address] [place] [address], * (ABNORMAL) HEMOGLOBIN, GLYCOSYLATED (08/17/2024 1:56 PM CDT) Pathologist [facility] HGB A1C 5.5 4.5 - 6.2 % 08/17/2024 7:47 PM CDT [facility] ESTIMATED AVG GLUCOSE 111(H) 74 - 106 MG/DL 08/17/2024 7:47 PM CDT [facility] 08/17/2024 1:56 PM CDT Nadeem Gray MD LABORATORY Final Result [facility] [address] [place] [address], * (ABNORMAL) COMPREHENSIVE METABOLIC PANEL (08/17/2024 1:56 PM CDT) Pathologist [facility] SODIUM S/P/B 137 136 - 145 MMOL/L 08/17/2024 8:04 PM CDT [facility] POTASSIUM S/P/B 4.5 3.5 - 5.1 MMOL/L 08/17/2024 8:04 PM CDT [facility] CHLORIDE S/P/B 101 98 - 107 MMOL/L 08/17/2024 8:04 PM CDT [facility] CO2 26.5 21 - 32 MMOL/L 08/17/2024 8:04 PM CDT [facility] GLUCOSE 130(H) 70 - 99 MG/DL 08/17/2024 8:04 PM CDT [facility] BUN 10 7 - 18 MG/DL 08/17/2024 8:04 PM CDT [facility] CREATININE S/P/B 0.67 0.55 - 1.02 MG/DL 08/17/2024 8:04 PM CDT [facility] CALCIUM S/P/B 9.6 8.4 - 10.5 MG/DL 08/17/2024 8:04 PM CDT [facility] BILIRUBIN TOTAL S/P/B 0.3 0.2 - 1.0 MG/DL 08/17/2024 8:04 PM CDT [facility] ALKALINE PHOSPHATASE S/P/B 111(H) 37 - 98 U/L 08/17/2024 8:04 PM CDT [facility] AST 13(L) 15 - 37 U/L 08/17/2024 8:04 PM T [facility] ALT 28 14 - 59 U/L 08/17/2024 8:04 PM T [facility] TOTAL PROTEIN S/P/B 7.9 6.4 - 8.2 G/DL 08/17/2024 8:04 PM T [facility] ALBUMIN S/P/B 3.9 3.4 - 5.0 G/DL 08/17/2024 8:04 PM T [facility] ANION GAP 9.5 5 - 15 MMOL/L 08/17/2024 8:04 PM T [facility] Comment:REFERENCE RANGE NOT ESTABLISHED OSMOLALITY (CALC) 285 MOSM/KG 025 8:04 PM T [facility] Comment:REFERENCE RANGE NOT ESTABLISHED GFR ESTIMATE >90 >90 ML/MIN/1. 73 M2 08/17/2024 8:04 PM T [facility] GFR NOTES GFR REFERENCE S: 08/17/2024 8:04 PM [facility] Comment: THE ESTIMATED GFR IS CALCULATED [...] CDT Nadeem Gray MD LABORATORY Final Result [facility] [address] [place] [address], * HEPATITIS C ANTIBODY (08/17/2024 1:56 PM CDT) [facility] HEPATITIS C AB NON-REACTI VE NON-REACT AMIRAH 08/18/2024 7:34 PM CDT [facility] Comment: ANTIBODIES TO HCV NOT DETECTED. DOES NOT EXCLUDE THE POSSIBILITY OF EXPOSURE TO HCV. 08/17/2024 1:56 PM CDT Nadeem Gray MD LABORATORY Final Result Performing Organization Address [facility] Co de Phone Number [facility] [address] [place] [address], [place] [phone] * (ABNORMAL) CBC W/DIFF AUTOMATED (08/17/2024 1:56 PM CDT) [facility] WBC 11.64(H) 4.00 - 10.80 x10'3/uL 08/17/2024 7:33 PM CDT [facility] RBC 4.90 4.10 - 5.40 x10'6/uL 08/17/2024 7:33 PM CDT [facility] HGB 12.9 12.0 - 16.0 G/DL 08/17/2024 7:33 PM CDT [facility] HCT 40.5 36.0 - 47.0 % 08/17/2024 7:33 PM CDT [facility] MCV 82.7 78.0 - 100.0 FL 08/17/2024 7:33 PM CDT [facility] MCH 26.3(L) 27.0 - 31.0 PG 08/17/2024 7:33 PM CDT [facility] MCHC 31.9(L) 33.0 - 36.0 G/DL 08/17/2024 7:33 PM CDT [facility] RDW 14.8(H) 11.5 - 14.5 % 08/17/2024 7:33 PM CDT -[facility] PLT 351(H) 150 - 350 x10'3/uL 08/17/2024 7:33 PM CDT [facility] MPV 10.9(H) 7.4 - 10.4 FL 08/17/2024 7:33 PM CDT [facility] DIFFERENTIAL TYPE AUTOMATED DIFFERENTIAL 08/17/2024 7:33 PM CDT [facility] NEUTROPHILS % 88.8 % 08/17/2024 7:33 PM CDT [facility] LYMPHOCYTES % 9.9 % 08/17/2024 7:33 PM CDT [facility] MONOCYTES % 0.8 % 08/17/2024 7:33 PM CDT [facility] EOSINOPHILS % 0.0 % 08/17/2024 7:33 PM CDT [facility] BASOPHILS % 0.3 % 08/17/2024 7:33 PM CDT [facility] IMMATURE GRANS % 0.2 % 08/17/2024 7:33 PM CDT [facility] ABS. NEUTROPHILS 10.35(H) 1.60 - 8.30 x10'3/uL 08/17/2024 7:33 PM CDT [facility] ABS. LYMPHOCYTES 1.15 0.80 - 4.70 x10'3/uL 08/17/2024 7:33 PM CDT [facility] ABS. MONOCYTES 0.09 0.00 - 1.50 x10'3/uL 08/17/2024 7:33 PM CDT [facility] ABS. EOSINOPHILS 0.00 0.00 - 0.40 x10'3/uL 08/17/2024 7:33 PM CDT [facility] ABS. BASOPHILS 0.03 0.00 - 0.20 x10'3/uL 08/17/2024 7:33 PM CDT [facility] ABS. IMMATURE GRANULOCYTES 0.02 0.00 - 0.03 x10'3/uL 08/17/2024 7:33 PM CDT [facility] 08/17/2024 1:56 PM CDT us Nadeem Gray MD LABORATORY Final Result [facility] [address] [place] [address], [place] [phone] * THYROXINE, FREE (FT4) (08/17/2024 1:56 PM CDT) FREE T4 1.00 0.76 - 1.46 NG/DL 08/18/2024 10:46 AM CDT [facility] 08/17/2024 1:56 PM CDT us Nadeem Gray MD LABORATORY Final Result Performing Organization Address [facility] Co de Phone Number [facility] [address] [place] [address], [place] [phone] from Last 3 Months Insurance Care Teams Dinkey Skinner Relationship Specialty Start Date End Date Nadeem Gray MD [address] [address] PCP - General INTERNAL MEDICINE 08/17/24
--- OUTSIDE RECORDS SUMMARY | 2024-09-17 06:42 | XMS_ITS | Encounter Summary ---
Author Organization [facility] Address [facility] [place] [address] Care Team Providers Care Pattern Worker Name Role Phone Nadeem Gray MD Primary Care Provider [phone] Encounter Details Date Type Department Care Team ([facility] st Contact Info) Description 09/07/2024 MyChart Message Enc [facility] Medical Group Multispecialty Care - [place] [address] [address] [place] [address] Nadeem Gray MD [address] [place] [address] [address] [place] [address] EEG Appointment Social History Tobacco Use Types Packs/Day Years [...] from your doctor or pharmacy? Never 08/17/2024 [facility] Utilities Answer Date Recorded In the past 12 months has e [employer], gas, oil, or water company threatened to [...] How often do you attend chur or alevism services? More than 4 times per year 08/17/2024 Do you belong to any clubs o r organizations such as yazidi groups, unions, fraternal or athletic groups, or [...] Recorded Patient Health Questionnaire-2 Score 0 08/17/2024 [facility] of Occupat ional Health - Occupational Stress [...] any time in the past 12 m [facility], were you homeless or living in a residential (including now)? 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 Gender Identity Female 08/17/2024 12:50 PM CDT Sexual Orientation Straight 08/17/2024 12 :50 PM CDT documented as of this encounter Plan of Treatment Upcoming Encounters Date Type Department Care Team (Late Contact Info) Description 09/19/2024 11:40 AM CDT Office Visit [facility] Medical Group Multispecialty Care - [place] [address] [address] [place] [address] Nadeem Gray MD [address] [place] [address] [address] [place] [address] 02/15/2025 10:20 AM CDT Office Visit [facility] Mult[facility]pecialty Care - [facility] [address] [place] [address] Simone Sage DO [address] [place] [address] documented as of this encounter Visit Diagnoses Not on filedocumented in this encounter Additional Health Concerns Assessment Noted Time PHQ-9 Depression Total Score: 1 08/18/19 25 1:23 PM CDT documented as of this encounter Care Teams Pattern Worker Relationship Specialty Start Date End Date Nadeem Gray MD [address] [facility] [address] [place] [address] PCP - General INTERNAL MEDICINE 08/17/24 documented as of this encounter
--- OUTSIDE RECORDS SUMMARY | 2024-09-17 06:42 | XMS_ITS | Encounter Summary ---
Author Organization [facility] Address [facility] [place] [address] Care Team Providers Care Swimming Pool Salesperson Name Role Phone Nadeem Gray MD Primary Care Provider [phone] Encounter Details Date Type Department Care Team (Latest Contact Info) Description 08/18/2024 Results Follow-Up [facility] Medical Group Multispecialty Care - [place] [address] [address] [place] [address] Nadeem Gray MD [address] [place] [address] [address] [place], [place] [id number] CBC W/DIFF AUTOMATED, COMPREHENSIVE METABOLIC PANEL, TSH [...] from your doctor or pharmacy? Never 08/17/2024 [facility] Utilities Answer Date Recorded In the past 12 months has e [email or web address], gas, oil, or water [employer] threatened to shut off services in your [...] Recorded Patient Health Questionnaire-2 Score 0 08/17/2024 [facility] of Occupat ional Health - Occupational Stress [...] any time in the past 12 m [facility], were you homeless or living in a long term (including now)? 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 Gender Identity Female 08/17/2024 12:50 PM CDT Sexual Orientation Straight 08/17/2024 12 :50 PM CDT documented as of this encounter Plan of Treatment Upcoming Encounters Date Type Department Care Team (Late st Contact Info) Description 09/19/2024 11:40 AM CDT Office Visit [facility] Group Multispecialty Care - [place] [address] [address] [place] [address] [place] [address] [place] [address] 02/15/2025 10:20 AM CDT Office Visit [facility] [address] [place] [address] Albert SagepavelDO [address] [place] [address] documented as of this encounter Results * FERRITIN (09/10/2024 8:39 AM CDT) FERRITIN 105.0 8 - 252 NG/ML 09/10/2024 4:14 PM CDT [facility] 09/10/2024 8:39 AM CDT us Nadeem Gray MD LABORATORY Final Result [facility] [address] [place] [address], [place] [phone] * IRON SAT PANEL (IRON,IBC,%SAT) (09/10/2024 8:39 AM CDT) IRON 52 50 - 170 MCG/DL 09/10/2024 4:14 PM CDT [facility] IRON BINDING CAPACITY 326 250 - 450 MCG/DL 09/10/2024 4:14 PM CDT [facility] IRON SATURATION 16 % 4:14 PM CDT [facility] Comment:REFERENCE RANGE NOT ESTABLISHED 09/10/2024 8:39 AM CDT us Nadeem Gray MD LABORATORY Final Result [facility] [address] [place] [address], [place] [phone] documented in this encounter Visit Diagnoses Diagnosis Iron deficiency anemia, unspecified iron deficiency anemia type- Primary documented in this encounter Additional Health Concerns Assessment Noted Time PHQ-9 Depression Total Score: 1 08/18/19 25 1:23 PM CDT documented as of this encounter Care Teams Swimming Pool Salesperson Relationship Specialty Start Date End Date Nadeem Gray MD [address] [id number] PCP - General INTERNAL MEDICINE 08/17/24 documented as of this encounter
--- NOTE | 2024-09-18 11:14 | WPDNEUROLOGY ---
Neurology EEG Report General Information Date of Study: 09/17/24 TEST EEG DIAGNOSIS Vasovagal syncope. CONDITION OF RECORDING Awake, drowsy and asleep. EEG NUMBER [id number] CLINICAL HISTORY Patient reports she has had bronchitis since June and has several episodes of times lost. She is conscious during coughing spells and also gives no history of bowel or bladder incontinence. EEG DESCRIPTION Basic resting occipital frequency consists of well-organized low voltage 9 to 11 hertz per 2nd alpha, which is symmetrical blocking with eyes opening, and Robaxin and waning during drowsiness. Low-voltage beta activity seen during drowsiness admixed with waxing and waning alpha activity. Bilateral symmetrical sleep activity is noted with bilateral symmetrical sleep spindles as well. Photic stimulation produced normal drive. Hyperventilation produced normal and symmetrical buildup. regular EKG artifact is noted intermittent. Non paroxysmal. Nonfocal. Nonlateralizing. IMPRESSION Normal record, clinical correlation recommended, as a normal EEG does not rule out the possibility of seizure disorder.
== END 2024-09-17 06:40 | disposition home or self-care (01) ==
PROVIDERS: PCP Internal Medicine; Visit Provider Internal Medicine
DX: R55 Syncope and collapse (principal); Z82.0 Family history of epilepsy and other diseases of the nervous system
CPT/HCPCS: 95819